=== PATIENT | male | born 1955 | race Caucasian/White ===

== ENCOUNTER → 2016-03-15 | Outpatient (CLI) | payer MEDICARE ==
[~2016-03-15] MED LIST: ATN25T PO; BACL10TA PO; FENT1PAT9 TD; HYDR-3708 PO; NF-LISIN40 PO; OMEP40CA3 PO; SIMV40TA2 PO; WARF10TA4 PO
== END ==
LOC: LAB 07:44
PROVIDERS: ATTEND Family Medicine
DX: Z51.81 Encounter for therapeutic drug level monitoring (principal); Z79.01 Long term (current) use of anticoagulants
CPT/HCPCS: 36415; 85610